=== PATIENT | male | born 1990 | race Caucasian/White ===

== ENCOUNTER 2017-09-07 09:10 | Emergency (ER) | payer SELFPAY ==
[~2017-09-07] VITALS: Ht 175.3 cm; Wt 85.0 kg
[2017-09-07 09:12] VITALS: BP 103/64
== END 2017-09-07 12:03 | disposition left against medical advice (07) ==
LOC: ER 09:33
DX: R11.2 Nausea with vomiting, unspecified (principal); Z53.21 Procedure and treatment not carried out due to patient leaving prior to being seen by health care provider